=== PATIENT | male | born 1955 | race Hispanic/Latino ===

== ENCOUNTER 2019-03-03 05:39 | Day surgery (SDC) | payer MEDICARE ==
[2019-03-03] VITALS (13 sets, daily range): BP systolic 104–145; BP diastolic 42–82
[~2019-03-03] VITALS: Ht 170.2 cm; Wt 92.5 kg
[2019-03-03] MEDS ORDERED: SODIUM CHLORIDE 0.9% 1000ML 1,000 ML IV ONE (06:03)
[2019-03-03] MEDS ORDERED: ATOR10TA69 PO (06:42)
[2019-03-03] MEDS ORDERED: HYDR-4154 PO (06:42)
[2019-03-03] MEDS ORDERED: FURO40TA5 PO (06:42)
[2019-03-03] MEDS ORDERED: NPH,100V11 SQ (06:42)
[2019-03-03] MEDS ORDERED: SEVE800T7 PO (06:42)
[2019-03-03] MEDS ORDERED: FOLI0.8T43 PO (06:42)
[2019-03-03] MEDS ORDERED: PROPOFOL 10 MG/ML 20ML VIAL IV ONE (07:42)
[2019-03-03] MEDS ORDERED: GLYCOPYRROLATE 0.2 MG/ML 5 ML VIAL ONE (07:42)
[2019-03-03] MEDS ORDERED: LIDOCAINE HCL 1% 20 ML VIAL ONE (07:42)
[2019-03-03] MEDS ORDERED: EPHEDRINE SULFATE 50 MG/ML AMPULE ONE (08:01)
[2019-03-03] MEDS ORDERED: ATROPINE SULFATE 0.1 MG/ML 10 ML SYG IVP ONE (08:10)
[2019-03-03] MEDS ORDERED: SODIUM BICARB 50MEQ 50ML VIAL ONE (08:13)
[2019-03-03 08:37] LABS: ABG BASE EXCESS 1.4 mmol/L (-2.0-3.0); ABG HCO3 27.3 mmol/L (21.0-28.0); ABG OXYGEN SATURATION 97.5 % (95.0-99.0); ABG PCO2 49 mmHg (35-48)
--- NOTE | 2019-03-03 09:00 | NUR ---
SUSANA SEVERINO INFORMED OF ABG READING. PT'S VS READ TO MERE. ORDERS GIVEN TO TRANSFER TO DAY PT FOR FURTHER OBSERVATION. PT STABLE, DENIES DISTRESS. Addendum: 03/03/19 at 0952 by SHAILESH PADILLA RN RN Amended: Links added.
== END 2019-03-03 10:12 | disposition home or self-care (01) ==
LOC: CANPRESDC → ENDO 05:39 → DAH 05:39 → ENDO 10:12
PROVIDERS: ATTEND Internal Medicine
DX: D50.9 Iron deficiency anemia, unspecified (principal); K25.9 Gastric ulcer, unspecified as acute or chronic, without hemorrhage or perforation; K31.89 Other diseases of stomach and duodenum; I85.00 Esophageal varices without bleeding; E11.22 Type 2 diabetes mellitus with diabetic chronic kidney disease; I12.0 Hypertensive chronic kidney disease with stage 5 chronic kidney disease or end stage renal disease; N18.6 End stage renal disease; K44.9 Diaphragmatic hernia without obstruction or gangrene; K59.01 Slow transit constipation; K21.9 Gastro-esophageal reflux disease without esophagitis; Z95.5 Presence of coronary angioplasty implant and graft; Z86.010 Personal history of colon polyps; Z79.899 Other long term (current) drug therapy; Z79.82 Long term (current) use of aspirin; E78.5 Hyperlipidemia, unspecified; Z98.890 Other specified postprocedural states
CPT/HCPCS: 36415; 36600; 43235; 82435; 82803; 82947; 82948 ×3; 83605; 84132 ×2; 84295; 85018; A4215; A4221; A4222; A4223; A4606; A4620; A4663; J0461; J2704; J3490 ×2; J7030